=== PATIENT | male | born 1995 | race African-American/Black ===

== ENCOUNTER 2018-08-18 07:29 | Emergency (ER) | payer MEDICAID ==
[~2018-08-18] VITALS: Ht 180.3 cm; Wt 64.4 kg
[2018-08-18 07:33] VITALS: Ht 180.3 cm; Wt 64.4 kg
[2018-08-18 10:33] VITALS: BP 124/81
== END 2018-08-18 10:45 | disposition home or self-care (01) ==
LOC: ED 07:29
DX: R10.11 Right upper quadrant pain (principal)

== ENCOUNTER 2018-08-20 15:03 | Emergency (ER) | payer MEDICAID ==
[~2018-08-20] VITALS: Ht 180.3 cm; Wt 63.5 kg
[2018-08-20 15:09] VITALS: Ht 180.3 cm; Wt 63.5 kg
[2018-08-20 18:06] LABS: CALCIUM 8.8 mg/dL (8.5-10.1); CARBON DIOXIDE 30.2 mmol/L (21-32); CHLORIDE SERUM 100 mmol/L (98-107); CREATININE SERUM 1.2 mg/dL (0.7-1.3); GFR1 > 60 mL/min; GLUCOSE SERUM 84 mg/dL (74-106); POTASSIUM SERUM 3.9 mmol/L (3.5-5.1); SODIUM SERUM 136 mmol/L (136-145)
[2018-08-20 18:08] LABS: BASOPHIL % 0.9 % (0-2); PLATELET COUNT 302 x10^3mcL (130-400); RED CELL DISTRIBUTION WIDTH 13.1 % (11.5-14.5)
[2018-08-20 18:11] LABS: ALBUMIN 3.9 g/dL (3.4-5.0); ALKALINE PHOSPHATASE 108 U/L (46-116); ALT/SGPT 41 U/L (16-63); AST/SGOT 28 U/L (15-37); BILIRUBIN TOTAL 0.43 mg/dL (0.20-1.00); LIPASE 173 IU/L (73-393); TOTAL PROTEIN, SERUM 8.2 g/dL (6.4-8.2)
[2018-08-20 18:18] LABS: microscopic required? NO
[2018-08-20 18:33] LABS: UA SPECIFIC GRAVITY 1.015 (1.005-1.035); urine erythrocyte NEGATIVE (NEGATIVE)
[2018-08-20 18:41] LABS: AMPHETAMINE QUAL UR NONE DETECTED (See below)
[2018-08-20 19:21] VITALS: BP 117/74
== END 2018-08-20 19:21 | disposition home or self-care (01) ==
LOC: ED 15:03
PROVIDERS: Specialist
DX: K59.00 Constipation, unspecified (principal); F14.20 Cocaine dependence, uncomplicated
CPT/HCPCS: 36415

== ENCOUNTER 2019-04-16 15:33 | Emergency (ER) | payer SELFPAY ==
[~2019-04-16] VITALS: Ht 177.8 cm; Wt 64.0 kg
[2019-04-16 15:54] VITALS: Ht 177.8 cm; Wt 64.0 kg
[2019-04-16 19:09] VITALS: BP 132/89
== END 2019-04-16 19:09 | disposition home or self-care (01) ==
LOC: ED 15:33
DX: Z11.3 Encounter for screening for infections with a predominantly sexual mode of transmission (principal); R53.83 Other fatigue